=== PATIENT | female | born 1990 | race Asian ===

== ENCOUNTER 2022-08-26 03:55 | Inpatient (IN) ==
[2022-08-26] MEDS ORDERED: Buffered Lidocaine 1% SYRIN 1 ml INTRADERM ONE (04:29)
[2022-08-26] MEDS ORDERED: Lactated Ringers 1000 ml BAG 1,000 ML IV ONE (04:29)
[2022-08-26 04:48] LABS: ABS Lymphocytes 1.5 10^3/uL (1.0-4.8); ABS Monocytes 0.4 10^3/uL (0.0-0.9); ABS Neutrophils 6.8 10^3/uL (1.5-7.6); Eosinophil % 0.2 %; Hematocrit 33.6 % (35-45); Lymphocyte % 17.3 %; Mean Corpuscular Hemoglobin 34.1 pg (27-33); Mean Corpuscular Hgb Conc 35.7 g/dL (31-36); Mean Corpuscular Volume 95.4 fL (80-97); Mean Platelet Volume 9.1 fL (7.5-11.2); Platelet Count 143 10^3/uL (150-450); Red Blood Count 3.52 10^6/uL (3.63-4.92); Red Cell Distribution Width 13.3 % (12-17); White Blood Count 8.7 10^3/uL (3.8-11.8)
[2022-08-26] MEDS ORDERED: OBEPIDURAL (200 ML) 200 ML EPIDURAL ONE (05:19)
[2022-08-26] MEDS ORDERED: Bupivacaine 0.25% SDV PF 10 ML VIAL INJ ONE (05:21)
[2022-08-26] MEDS ORDERED: Phenylephrine 40 mcg/mL 10mL (400mcg) SYRINGE IV PUSH PRN ×2 (06:01)
[2022-08-26 06:15] LABS: Urine Appearance Cloudy; Urine Bilirubin Negative (Negative); Urine Blood Negative (Negative); Urine Color Yellow; Urine Glucose Negative (Negative); Urine Ketones Trace (Negative); Urine Nitrite Negative (Negative); Urine Protein Negative (Negative); Urine Specific Gravity 1.015 (1.002-1.030); Urine Urobilinogen Negative (Negative)
[2022-08-26 06:41] LABS: Urine Benzodiazepine Screen None Detected (None Detect); Urine Cannabinoids Screen None Detected (None Detect); Urine Opiates Screen None Detected (None Detect)
[2022-08-26] MEDS ORDERED: OBEPIDURAL (200 ML) 200 ML EPIDURAL SCH (07:00)
[2022-08-26] MEDS: Lactated Ringers 1000 ml BAG 1,000 ML IV SCH ×2 (07:01→09:45)
[2022-08-26] MEDS ORDERED: Dibucaine 1% OINT 28.35 GM TUBE PR PRN (11:17)
[2022-08-26] MEDS ORDERED: Glycerin ADULT 2.4 gm SUPP PR PRN (11:17)
[2022-08-26] MEDS ORDERED: Witch Hazel PAD JAR TOPICAL PRN (11:17)
[2022-08-26] MEDS ORDERED: Lactated Ringers 1000 ml BAG 1,000 ML IV SCH (12:00)
[2022-08-26] MEDS ORDERED: Lidocaine 1% VIAL 10 MG/ML VIAL 30 ML ONE (15:40)
[2022-08-27 07:16] LABS: ABS Basophils 0.1 10^3/uL (0.0-0.1); ABS Eosinophils 0.1 10^3/uL (0.0-0.5); ABS Monocytes 0.4 10^3/uL (0.0-0.9); ABS Neutrophils 6.9 10^3/uL (1.5-7.6); Eosinophil % 0.7 %; Hematocrit 26.8 % (35-45); Hemoglobin 9.5 g/dL (11.5-14.3); Lymphocyte % 21.3 %; Mean Corpuscular Hemoglobin 33.7 pg (27-33); Mean Corpuscular Hgb Conc 35.2 g/dL (31-36); Mean Corpuscular Volume 95.5 fL (80-97); Mean Platelet Volume 8.9 fL (7.5-11.2); Platelet Count 123 10^3/uL (150-450); Red Blood Count 2.81 10^6/uL (3.63-4.92); Red Cell Distribution Width 13.4 % (12-17); White Blood Count 9.4 10^3/uL (3.8-11.8)
[2022-08-28 12:58] VITALS: BP 108/77
[2022-08-28 13:44] LABS: Varicella IgG Antibody Index <0.2; Varicella-Zoster IgG Antibody Negative
== END 2022-08-28 14:58 | disposition home or self-care (01) | DRG 807 ==
LOC: MCHOBOUT 03:55 → MCHOB 04:18
PROVIDERS: ADMIT Midwife; ATTEND Advanced Practice Midwife